=== PATIENT | female | born 1960 | race Two or more races ===

== ENCOUNTER → 2018-11-30 | Outpatient (REF) | payer SELFPAY ==
[2018-12-04 08:20] LABS: HPV HYBRID CAPTURE II Negative (Negative)
== END ==
LOC: M LAB LCGH 11:43
PROVIDERS: ATTEND Nurse Practitioner Adult Health
DX: N95.2 Postmenopausal atrophic vaginitis (principal)
CPT/HCPCS: 87624; G0123